=== PATIENT | male | born 1975 | race African-American/Black ===

== ENCOUNTER 2017-07-02 11:51 | Emergency (ER) | payer SELFPAY ==
[~2017-07-02] VITALS: Ht 182.9 cm; Wt 95.0 kg
[2017-07-02 13:35] LABS: INR 1.1; PROTHROMBIN TIME 11.8 sec (9.4-11.6)
[2017-07-02 13:42] LABS: CHLORIDE 99 mEq/L (98-107)
[2017-07-02 13:48] LABS: BASOPHILS % 0.4 % (0.0-2.0); EOSINOPHILS % 6.8 % (0.0-5.0); HEMATOCRIT. 23.2 % (42.0-52.0); HEMOGLOBIN. 8.2 g/dL (14.0-18.0); LYMPHOCYTES % 8.8 % (20.0-50.0); MEAN CORPUSCULAR HEMOGLOBIN 31.2 pg (28.0-32.0); MEAN CORPUSCULAR VOLUME 87.9 fL (80.0-94.0); MEAN PLATELET VOLUME 7.8 fl (7.4-10.4); MONOCYTES % 13.8 % (2.0-8.0); NEUTROPHILS % 70.2 % (40.0-76.0); PLATELET 176 x1000/uL (130-400); RED BLOOD CELL COUNT 2.64 mill/uL (4.7-6.1); RED CELL DISTRIBUTION WIDTH 14.5 % (11.6-14.6)
[2017-07-02 17:37] VITALS: BP 167/113
== END 2017-07-02 17:39 | disposition home or self-care (01) ==
LOC: ER 14:02
DX: T82.838A Hemorrhage due to vascular prosthetic devices, implants and grafts, initial encounter (principal); I12.0 Hypertensive chronic kidney disease with stage 5 chronic kidney disease or end stage renal disease; N18.6 End stage renal disease; Z99.2 Dependence on renal dialysis
CPT/HCPCS: 36415; 80053; 85025; 85610; 99284; X7700; Z7610

== ENCOUNTER 2017-07-03 09:42 | Emergency (ER) | payer BC ==
[~2017-07-03] VITALS: Ht 182.9 cm; Wt 100.0 kg
[2017-07-03] MEDS ORDERED: LIDOCAINE HCL/PF 1% 10 MG/ML 5ML VIAL ONE (10:24)
[2017-07-03 10:29] LABS: BASOPHILS % 0.3 % (0.0-2.0); EOSINOPHILS % 5.7 % (0.0-5.0); HEMATOCRIT. 23.1 % (42.0-52.0); HEMOGLOBIN. 7.7 g/dL (14.0-18.0); LYMPHOCYTES % 7.3 % (20.0-50.0); MEAN CORPUSCULAR HEMOGLOBIN 29.2 pg (28.0-32.0); MEAN PLATELET VOLUME 8.3 fl (7.4-10.4); MONOCYTES % 10.2 % (2.0-8.0); NEUTROPHILS % 76.5 % (40.0-76.0); PLATELET 242 x1000/uL (130-400); RED BLOOD CELL COUNT 2.62 mill/uL (4.7-6.1); RED CELL DISTRIBUTION WIDTH 14.9 % (11.6-14.6)
[2017-07-03 10:36] LABS: INR 1.1; PROTHROMBIN TIME 11.4 sec (9.4-11.6)
[2017-07-03 10:43] LABS: CHLORIDE 98 mEq/L (98-107)
[2017-07-03] MEDS ORDERED: HEPARIN 1000 UNITS/ML 10ML ONE (11:05)
[2017-07-03 12:00] VITALS: BP 159/97
== END 2017-07-03 12:13 | disposition home or self-care (01) ==
LOC: ER 10:00
DX: Z49.01 Encounter for fitting and adjustment of extracorporeal dialysis catheter (principal); D63.1 Anemia in chronic kidney disease; E87.1 Hypo-osmolality and hyponatremia; I12.0 Hypertensive chronic kidney disease with stage 5 chronic kidney disease or end stage renal disease; N18.6 End stage renal disease; Z99.2 Dependence on renal dialysis
CPT/HCPCS: 36415; 36556; 76937; 77001; 80053; 85025; 85610; 99285; C1752; J1644; J3490; Z7610

== ENCOUNTER 2019-06-01 06:01 | Inpatient (IN) | payer BC ==
[~2019-06-01] VITALS: Ht 170.2 cm; Wt 85.3 kg
[2019-06-01 08:10] LABS: CHLORIDE 98 mEq/L (98-107)
[2019-06-01 08:11] LABS: HEMATOCRIT. 25.5 % (42.0-52.0); HEMOGLOBIN. 8.2 g/dL (14.0-18.0); MEAN CORPUSCULAR HEMOGLOBIN 28.3 pg (28.0-32.0); MEAN CORPUSCULAR VOLUME 88.5 fL (80.0-94.0); MEAN PLATELET VOLUME 7.4 fl (7.4-10.4); PLATELET 400 x1000/uL (130-400); RED BLOOD CELL COUNT 2.88 mill/uL (4.7-6.1); RED CELL DISTRIBUTION WIDTH 15.8 % (11.6-14.6)
[2019-06-01] MEDS ORDERED: ONDANSETRON HCL 4MG/2ML INJ IV ONE (08:15)
[2019-06-01 08:21] LABS: INR 1.3; PROTHROMBIN TIME 12.9 sec (9.6-11.0)
[2019-06-01] MEDS ORDERED: MECLIZINE 25MG TABLET PO ONE (09:45)
[2019-06-01] MEDS ORDERED: ASPIRIN 325MG TABLET PO ONE (09:45)
[2019-06-01 10:37] LABS: PLATELET ESTIMATE NORMAL
[2019-06-01 14:22] VITALS: BP 139/91
[2019-06-01] MEDS ORDERED: ONDANSETRON HCL 4MG/2ML INJ IV PRN (14:30)
[2019-06-01] MEDS ORDERED: DOCUSATE SODIUM 100MG CAPSULE PO PRN (14:30)
[2019-06-01] MEDS ORDERED: IPRATROPIUM/ALBUTEROL 0.5-3(2.5)MG/3ML NEB HHN PRN (14:30)
[2019-06-01] MEDS ORDERED: CLONIDINE 0.1MG TABLET PO PRN (14:30)
[2019-06-01] MEDS ORDERED: ACETAMINOPHEN 325MG TABLET PO PRN (14:30)
[2019-06-01] MEDS ORDERED: ENOXAPARIN 40MG/0.4ML SYR SUBCUT SCH (14:30)
[2019-06-01] MEDS: ENOXAPARIN 30MG/0.3ML SYR SUBCUT SCH (16:27)
[2019-06-01] MEDS: SEVELAMER CARBONATE 800 MG TABLET PO SCH (16:27)
[2019-06-01] MEDS: CALCIUM ACETATE 667 MG TABLET PO SCH (18:38)
[2019-06-01 20:00] VITALS: BP 119/92
[2019-06-01] MEDS ORDERED: LACTULOSE 20G/30ML UDC PO PRN (21:00)
[2019-06-01] MEDS ORDERED: EPOETIN ALFA 10000UNITS/ML VIAL SUBCUT SCH (21:00)
[2019-06-01] MEDS ORDERED: TEMAZEPAM 15MG CAPSULE PO PRN (21:00)
[2019-06-01] MEDS: ATORVASTATIN CALCIUM 20MG TABLET PO SCH (22:21)
[2019-06-01] MEDS: HYDRALAZINE HCL 25MG TABLET PO SCH (22:21)
[2019-06-01] MEDS: LABETALOL HCL 300MG TABLET PO SCH (22:22)
[2019-06-01] MEDS: SODIUM CHLORIDE 0.9% INJ 3ML FLUSH IVF SCH (22:22)
[2019-06-02] VITALS: BP 121/82
[2019-06-02 04:00] VITALS: BP 120/78
[2019-06-02] MEDS: PANTOPRAZOLE 40MG DR TABLET PO SCH (06:25)
[2019-06-02] MEDS: LABETALOL HCL 300MG TABLET PO SCH ×3 (06:25→22:47)
[2019-06-02] MEDS: HYDRALAZINE HCL 25MG TABLET PO SCH ×3 (06:25→22:47)
[2019-06-02] MEDS: SODIUM CHLORIDE 0.9% INJ 3ML FLUSH IVF SCH ×3 (06:26→22:47)
[2019-06-02 08:00] VITALS: BP 134/86
[2019-06-02 08:25] LABS: HEMATOCRIT. 24.2 % (42.0-52.0); HEMOGLOBIN. 7.6 g/dL (14.0-18.0); MEAN CORPUSCULAR HEMOGLOBIN 28.2 pg (28.0-32.0); MEAN CORPUSCULAR VOLUME 89.3 fL (80.0-94.0); MEAN PLATELET VOLUME 7.5 fl (7.4-10.4); PLATELET 421 x1000/uL (130-400); RED BLOOD CELL COUNT 2.71 mill/uL (4.7-6.1); RED CELL DISTRIBUTION WIDTH 16.1 % (11.6-14.6)
[2019-06-02 08:45] LABS: CHLORIDE 97 mEq/L (98-107)
[2019-06-02 08:50] LABS: TOTAL IRON BINDING CAPACITY 118 ug/dL (250-450)
[2019-06-02] MEDS: SEVELAMER CARBONATE 800 MG TABLET PO SCH ×3 (09:08→17:07)
[2019-06-02] MEDS: LOSARTAN POTASSIUM 100 MG TABLET PO SCH (09:08)
[2019-06-02] MEDS: AMLODIPINE 10MG TABLET PO SCH (09:08)
[2019-06-02] MEDS: FOLIC ACID/VITAMIN B COMP W-C TABLET PO SCH (09:08)
[2019-06-02] MEDS: CALCIUM ACETATE 667 MG TABLET PO SCH ×3 (09:11→17:07)
[2019-06-02 12:00] VITALS: BP 127/77
[2019-06-02] MEDS: HYDROCODONE/APAP 7.5/325MG 1 TAB TABLET PO PRN ×2 (14:32→23:53)
[2019-06-02 15:55] LABS: PLATELET ESTIMATE SLIGHTLY INCREASED
[2019-06-02 16:00] VITALS: BP 118/75
[2019-06-02] MEDS: ENOXAPARIN 30MG/0.3ML SYR SUBCUT SCH (17:09)
[2019-06-02 20:00] VITALS: BP 155/78
[2019-06-02] MEDS: ATORVASTATIN CALCIUM 20MG TABLET PO SCH (22:47)
[2019-06-03] VITALS: BP 150/85
[2019-06-03 04:00] VITALS: BP 125/88
[2019-06-03] MEDS: PANTOPRAZOLE 40MG DR TABLET PO SCH (06:18)
[2019-06-03] MEDS: LABETALOL HCL 300MG TABLET PO SCH ×3 (06:18→20:40)
[2019-06-03] MEDS: HYDRALAZINE HCL 25MG TABLET PO SCH ×3 (06:19→20:39)
[2019-06-03] MEDS: SODIUM CHLORIDE 0.9% INJ 3ML FLUSH IVF SCH ×3 (06:19→20:40)
[2019-06-03 07:37] VITALS: BP 128/80
[2019-06-03] MEDS: HYDROCODONE/APAP 7.5/325MG 1 TAB TABLET PO PRN ×2 (07:42→19:17)
[2019-06-03] MEDS: SEVELAMER CARBONATE 800 MG TABLET PO SCH ×4 (08:33→19:15)
[2019-06-03] MEDS: AMLODIPINE 10MG TABLET PO SCH (08:34)
[2019-06-03] MEDS: FOLIC ACID/VITAMIN B COMP W-C TABLET PO SCH (08:34)
[2019-06-03] MEDS: LOSARTAN POTASSIUM 100 MG TABLET PO SCH (08:34)
[2019-06-03] MEDS: CALCIUM ACETATE 667 MG TABLET PO SCH ×4 (08:35→19:16)
[2019-06-03 12:11] VITALS: BP 130/81
[2019-06-03 15:33] VITALS: BP 121/79
[2019-06-03] MEDS: ENOXAPARIN 30MG/0.3ML SYR SUBCUT SCH (16:00)
[2019-06-03 20:00] VITALS: BP 135/78
[2019-06-03] MEDS: ATORVASTATIN CALCIUM 20MG TABLET PO SCH (20:40)
[2019-06-04] VITALS: BP 132/66
[2019-06-04 04:00] VITALS: BP 141/69
[2019-06-04 05:08] LABS: HEMOGLOBIN. 7.5 g/dL (14.0-18.0); MEAN CORPUSCULAR VOLUME 89.2 fL (80.0-94.0); MEAN PLATELET VOLUME 7.3 fl (7.4-10.4); PLATELET 446 x1000/uL (130-400); RED BLOOD CELL COUNT 2.58 mill/uL (4.7-6.1); RED CELL DISTRIBUTION WIDTH 16.4 % (11.6-14.6)
[2019-06-04] MEDS: SODIUM CHLORIDE 0.9% INJ 3ML FLUSH IVF SCH ×2 (06:05→13:29)
[2019-06-04] MEDS: HYDRALAZINE HCL 25MG TABLET PO SCH ×2 (06:06→13:29)
[2019-06-04] MEDS: LABETALOL HCL 300MG TABLET PO SCH ×2 (06:06→13:29)
[2019-06-04] MEDS: PANTOPRAZOLE 40MG DR TABLET PO SCH (06:06)
[2019-06-04] MEDS: HYDROCODONE/APAP 7.5/325MG 1 TAB TABLET PO PRN (06:32)
[2019-06-04 08:00] VITALS: BP 118/73
[2019-06-04] MEDS: AMLODIPINE 10MG TABLET PO SCH (08:00)
[2019-06-04] MEDS: LOSARTAN POTASSIUM 100 MG TABLET PO SCH (08:00)
[2019-06-04] MEDS: FOLIC ACID/VITAMIN B COMP W-C TABLET PO SCH (08:15)
[2019-06-04] MEDS: SEVELAMER CARBONATE 800 MG TABLET PO SCH ×4 (08:15→18:10)
[2019-06-04] MEDS: CALCIUM ACETATE 667 MG TABLET PO SCH ×4 (08:20→18:10)
[2019-06-04 12:00] VITALS: BP 118/77
[2019-06-04] MEDS: ENOXAPARIN 30MG/0.3ML SYR SUBCUT SCH (15:42)
[2019-06-04 16:52] LABS: PLATELET ESTIMATE INCREASED
[2019-06-04 18:01] VITALS: BP 127/82
[2019-06-04 20:00] VITALS: BP 140/86
== END 2019-06-04 21:15 | disposition left against medical advice (07) | DRG 686 ==
LOC: ER 06:14 → 6WST 09:37 → EDBEDREQ 09:39 → ENRESERV 11:50
PROVIDERS: ADMIT Internal Medicine Nephrology; ATTEND Internal Medicine Nephrology
PROC: 5A1D70Z Performance of Urinary Filtration, Intermittent, Less than 6 Hours Per Day (ICD-10-PCS; 2019-06-02)
PROC: 30233N1 Transfusion of Nonautologous Red Blood Cells into Peripheral Vein, Percutaneous Approach (ICD-10-PCS; principal; 2019-06-04)
PROC: 5A1D70Z Performance of Urinary Filtration, Intermittent, Less than 6 Hours Per Day (ICD-10-PCS; 2019-06-04)
DX: C64.2 Malignant neoplasm of left kidney, except renal pelvis (principal); N18.6 End stage renal disease; G92 Toxic encephalopathy; I13.11 Hypertensive heart and chronic kidney disease without heart failure, with stage 5 chronic kidney disease, or end stage renal disease; I50.32 Chronic diastolic (congestive) heart failure; D63.1 Anemia in chronic kidney disease; R47.81 Slurred speech; K59.00 Constipation, unspecified; T40.2X5A Adverse effect of other opioids, initial encounter; Z53.29 Procedure and treatment not carried out because of patient's decision for other reasons; Z99.2 Dependence on renal dialysis; Z86.79 Personal history of other diseases of the circulatory system; Z90.5 Acquired absence of kidney; Z86.14 Personal history of Methicillin resistant Staphylococcus aureus infection; Z95.2 Presence of prosthetic heart valve; Z87.891 Personal history of nicotine dependence; Y92.89 Other specified places as the place of occurrence of the external cause
CPT/HCPCS: 36415; 71045; 80048; 80053; 80320; 82962; 83540; 83550; 83970; 84484; 85025; 86850; 86900; 86920; 93005; 99291; J0885; J1650; J2405; J8597; P9016; G0480

== ENCOUNTER 2020-12-16 18:19 | Inpatient (IN) | payer BC ==
[~2020-12-16] VITALS: Ht 182.9 cm; Wt 85.0 kg
[2020-12-16 19:20] LABS: CHLORIDE 102 mEq/L (98-107)
[2020-12-16 19:22] LABS: INR 1.1; PROTHROMBIN TIME 11.3 sec (9.6-11.0)
[2020-12-16 19:28] LABS: HEMATOCRIT. 22.1 % (42.0-52.0); HEMOGLOBIN. 7.4 g/dL (14.0-18.0); MEAN CORPUSCULAR HEMOGLOBIN 31.6 pg (28.0-32.0); MEAN CORPUSCULAR VOLUME 94.5 fL (80.0-94.0); MEAN PLATELET VOLUME 7.4 fl (7.4-10.4); PLATELET 184 x1000/uL (130-400); RED BLOOD CELL COUNT 2.34 mill/uL (4.7-6.1); RED CELL DISTRIBUTION WIDTH 16.4 % (11.6-14.6)
[2020-12-16 20:07] LABS: PLATELET ESTIMATE NORMAL
[2020-12-16] MEDS ORDERED: ACETAMINOPHEN 650MG/20.3ML UDC PO ONE (21:45)
[2020-12-17] MEDS ORDERED: GUAIFENESIN 200MG/10ML SUGAR FREE UDC PO PRN (01:00)
[2020-12-17] MEDS ORDERED: IPRATROPIUM/ALBUTEROL 0.5-3(2.5)MG/3ML NEB HHN PRN (01:00)
[2020-12-17] MEDS ORDERED: CLONIDINE 0.1MG TABLET PO PRN (01:00)
[2020-12-17] MEDS ORDERED: DIPHENHYDRAMINE 50MG/ML VIAL IV PRN (01:00)
[2020-12-17] MEDS ORDERED: ACETAMINOPHEN 325MG TABLET PO PRN (01:00)
[2020-12-17] MEDS ORDERED: ONDANSETRON HCL 4MG/2ML INJ IV PRN (01:00)
[2020-12-17] MEDS: ACETAMINOPHEN 325MG TABLET PO PRN ×2 (03:49→15:08)
[2020-12-17] MEDS: ZOLPIDEM TARTRATE 5MG TABLET PO PRN (04:12)
[2020-12-17] MEDS: SODIUM CHLORIDE 0.9% INJ 3ML FLUSH IVF SCH ×2 (06:00→14:57)
[2020-12-17 12:00] LABS: HEPATITIS B SURFACE ANTIGEN NEGATIVE
[2020-12-17 12:08] LABS: BG BASE EXCESS 8.5 mmol/L (-2.0-2.0); BG CARBOXYHEMOGLOBIN 0.5 % (0.5-1.5); BG DEOXYHEMOGLOBIN 3.5 % (0.0-5.0); BG FRACTION INSPIRED OXYGEN 100; BG METHEMOGLOBIN 0.2 % (0.0-1.5); BG OXYGEN SATURATION 96.5 % (92.0-98.5); BG OXYHEMOGLOBIN 95.8 % (94.0-97.0); BG PH 7.521 (7.350-7.450); BG PO2 86.9 mmHg (75.0-100.0); BG SAMPLE SITE RIGHT RADIAL; BG TOTAL HEMOGLOBIN 8.2 g/dL (12.0-18.0); BG VENT MODE MASK - NRB
[2020-12-17 12:30] LABS: HEPATITIS A AB IGM NEGATIVE (NEGATIVE)
[2020-12-17] MEDS: AMLODIPINE 10MG TABLET PO SCH (13:02)
[2020-12-17] MEDS: LABETALOL HCL 300MG TABLET PO SCH (13:47)
[2020-12-17] MEDS: HYDRALAZINE HCL 100MG TABLET PO SCH (14:00)
[2020-12-17] MEDS: CALCIUM ACETATE 667MG CAPSULE PO SCH (17:00)
[2020-12-17] MEDS: IPRATROPIUM/ALBUTEROL 0.5-3(2.5)MG/3ML NEB HHN SCH (20:11)
[2020-12-17] MEDS ORDERED: IOHEXOL-350 100 ML BOTTLE ONE (20:55)
[2020-12-18] VITALS (13 sets, daily range): BP systolic 126–156; BP diastolic 76–101
[2020-12-18] MEDS: EPOETIN ALFA-EPBX 10,000 UNIT/ML VIAL SUBCUT SCH (01:51)
[2020-12-18] MEDS: SODIUM CHLORIDE 0.9% INJ 3ML FLUSH IVF SCH ×4 (01:51→21:18)
[2020-12-18] MEDS: ZOLPIDEM TARTRATE 5MG TABLET PO PRN (01:52)
[2020-12-18] MEDS: IPRATROPIUM/ALBUTEROL 0.5-3(2.5)MG/3ML NEB HHN SCH ×3 (02:33→13:38)
[2020-12-18] MEDS: ACETAMINOPHEN 325MG TABLET PO PRN ×2 (05:01→12:16)
[2020-12-18] MEDS: HYDRALAZINE HCL 100MG TABLET PO SCH ×3 (05:02→21:18)
[2020-12-18 06:19] LABS: MEAN CORPUSCULAR HEMOGLOBIN 32.1 pg (28.0-32.0); MEAN CORPUSCULAR VOLUME 95.2 fL (80.0-94.0); MEAN PLATELET VOLUME 7.7 fl (7.4-10.4); PLATELET 156 x1000/uL (130-400); RED BLOOD CELL COUNT 2.11 mill/uL (4.7-6.1); RED CELL DISTRIBUTION WIDTH 16.7 % (11.6-14.6)
[2020-12-18 06:38] LABS: PHOSPHORUS 3.9 mg/dL (2.5-4.9)
[2020-12-18 06:42] LABS: HEMATOCRIT. 20.1 % (42.0-52.0)
[2020-12-18 06:43] LABS: HEMOGLOBIN. 6.8 g/dL (14.0-18.0)
[2020-12-18] MEDS: LOSARTAN POTASSIUM 100 MG TABLET PO SCH (08:58)
[2020-12-18] MEDS: CALCIUM ACETATE 667MG CAPSULE PO SCH ×3 (08:58→18:04)
[2020-12-18] MEDS: LABETALOL HCL 300MG TABLET PO SCH ×2 (08:59→21:18)
[2020-12-18] MEDS: AMLODIPINE 10MG TABLET PO SCH (09:00)
[2020-12-18] MEDS: BUDESONIDE 0.5MG/2ML NEB HHN SCH (09:27)
[2020-12-18 10:11] LABS: PLATELET ESTIMATE NORMAL
[2020-12-18] MEDS ORDERED: NALOXONE HCL 0.4MG/ML VIAL IV PRN (14:00)
[2020-12-18] MEDS: TRAMADOL 50MG TABLET PO PRN (14:07)
[2020-12-19] VITALS: BP 149/96
[2020-12-19] MEDS: TRAMADOL 50MG TABLET PO PRN ×3 (00:10→21:40)
[2020-12-19] MEDS: ZOLPIDEM TARTRATE 5MG TABLET PO PRN (01:20)
[2020-12-19] MEDS: IPRATROPIUM/ALBUTEROL 0.5-3(2.5)MG/3ML NEB HHN SCH ×4 (02:31→20:20)
[2020-12-19 04:00] VITALS: BP 129/79
[2020-12-19] MEDS: HYDRALAZINE HCL 100MG TABLET PO SCH ×3 (06:31→21:40)
[2020-12-19] MEDS: SODIUM CHLORIDE 0.9% INJ 3ML FLUSH IVF SCH ×3 (06:32→21:41)
[2020-12-19 08:27] VITALS: BP 120/76
[2020-12-19] MEDS: BUDESONIDE 0.5MG/2ML NEB HHN SCH ×2 (08:36→21:09)
[2020-12-19] MEDS: LABETALOL HCL 300MG TABLET PO SCH ×2 (09:22→21:40)
[2020-12-19] MEDS: AMLODIPINE 10MG TABLET PO SCH (09:22)
[2020-12-19] MEDS: CALCIUM ACETATE 667MG CAPSULE PO SCH ×3 (09:23→17:43)
[2020-12-19] MEDS: LOSARTAN POTASSIUM 100 MG TABLET PO SCH (09:23)
[2020-12-19 11:59] VITALS: BP 122/79
[2020-12-19 16:00] VITALS: BP 117/68
[2020-12-19 20:00] VITALS: BP 136/80
[2020-12-19] MEDS: EPOETIN ALFA-EPBX 10,000 UNIT/ML VIAL SUBCUT SCH (21:41)
[2020-12-20] VITALS (12 sets, daily range): BP systolic 121–138; BP diastolic 71–89
[2020-12-20] MEDS: ZOLPIDEM TARTRATE 5MG TABLET PO PRN (00:13)
[2020-12-20] MEDS: IPRATROPIUM/ALBUTEROL 0.5-3(2.5)MG/3ML NEB HHN SCH ×4 (02:03→21:08)
[2020-12-20] MEDS: HYDRALAZINE HCL 100MG TABLET PO SCH ×2 (06:15→13:18)
[2020-12-20] MEDS: SODIUM CHLORIDE 0.9% INJ 3ML FLUSH IVF SCH ×2 (06:15→13:19)
[2020-12-20] MEDS: BUDESONIDE 0.5MG/2ML NEB HHN SCH (07:29)
[2020-12-20 07:55] LABS: HEMOGLOBIN. 7.1 g/dL (14.0-18.0); MEAN CORPUSCULAR HEMOGLOBIN 31.7 pg (28.0-32.0); MEAN CORPUSCULAR VOLUME 92.8 fL (80.0-94.0); MEAN PLATELET VOLUME 7.5 fl (7.4-10.4); PLATELET 204 x1000/uL (130-400); RED BLOOD CELL COUNT 2.24 mill/uL (4.7-6.1); RED CELL DISTRIBUTION WIDTH 16.1 % (11.6-14.6)
[2020-12-20 08:35] LABS: HEMATOCRIT. 20.8 % (42.0-52.0)
[2020-12-20 08:55] LABS: BG BASE EXCESS 5.4 mmol/L (-2.0-2.0); BG CARBOXYHEMOGLOBIN 1.5 % (0.5-1.5); BG DEOXYHEMOGLOBIN 10.3 % (0.0-5.0); BG HCO3 ACT 28.5 mmol/L (22.0-26.0); BG METHEMOGLOBIN 0.4 % (0.0-1.5); BG OXYGEN SATURATION 89.5 % (92.0-98.5); BG OXYHEMOGLOBIN 87.8 % (94.0-97.0); BG PCO2 35.3 mmHg (35.0-45.0); BG PH 7.525 (7.350-7.450); BG PO2 55.1 mmHg (75.0-100.0); BG SAMPLE SITE RIGHT RADIAL; BG TOTAL HEMOGLOBIN 7.9 g/dL (12.0-18.0); BG VENT MODE ROOM AIR
[2020-12-20] MEDS: CALCIUM ACETATE 667MG CAPSULE PO SCH ×2 (09:04→13:20)
[2020-12-20] MEDS: TRAMADOL 50MG TABLET PO PRN ×2 (09:05→20:15)
[2020-12-20] MEDS: LABETALOL HCL 300MG TABLET PO SCH ×2 (09:05→21:12)
[2020-12-20] MEDS: LOSARTAN POTASSIUM 100 MG TABLET PO SCH (09:05)
[2020-12-20] MEDS: AMLODIPINE 10MG TABLET PO SCH (09:06)
[2020-12-20 18:56] LABS: PLATELET ESTIMATE NORMAL
[2020-12-20 19:41] LABS: HEMATOCRIT. 26.5 % (42.0-52.0); MEAN CORPUSCULAR HEMOGLOBIN 31.1 pg (28.0-32.0); MEAN CORPUSCULAR VOLUME 91.5 fL (80.0-94.0); MEAN PLATELET VOLUME 7.3 fl (7.4-10.4); PLATELET 270 x1000/uL (130-400); RED CELL DISTRIBUTION WIDTH 17.5 % (11.6-14.6)
[2020-12-20 21:20] LABS: PLATELET ESTIMATE NORMAL
== END 2020-12-20 21:44 | disposition home or self-care (01) | DRG 291 ==
LOC: ER 18:19 → MICUSO 12-17 00:31 → EDBEDREQDT 12-17 00:44 → EDBEDREQ 12-17 00:44 → EDBEDREQTM 12-17 00:44 → 6WST 12-17 22:34
PROVIDERS: ADMIT Internal Medicine; ATTEND Internal Medicine
PROC: 5A1D70Z Performance of Urinary Filtration, Intermittent, Less than 6 Hours Per Day (ICD-10-PCS; 2020-12-17)
PROC: 30233N1 Transfusion of Nonautologous Red Blood Cells into Peripheral Vein, Percutaneous Approach (ICD-10-PCS; principal; 2020-12-18)
PROC: 5A1D70Z Performance of Urinary Filtration, Intermittent, Less than 6 Hours Per Day (ICD-10-PCS; 2020-12-18)
PROC: 5A1D70Z Performance of Urinary Filtration, Intermittent, Less than 6 Hours Per Day (ICD-10-PCS; 2020-12-19)
DX: I13.2 Hypertensive heart and chronic kidney disease with heart failure and with stage 5 chronic kidney disease, or end stage renal disease (principal); J96.01 Acute respiratory failure with hypoxia; I50.33 Acute on chronic diastolic (congestive) heart failure; N18.6 End stage renal disease; J84.9 Interstitial pulmonary disease, unspecified; M54.5 Low back pain; Z20.822 Contact with and (suspected) exposure to COVID-19; D63.8 Anemia in other chronic diseases classified elsewhere; E78.00 Pure hypercholesterolemia, unspecified; I25.10 Atherosclerotic heart disease of native coronary artery without angina pectoris; Z99.81 Dependence on supplemental oxygen; Z85.528 Personal history of other malignant neoplasm of kidney; Z90.5 Acquired absence of kidney; Z99.2 Dependence on renal dialysis
CPT/HCPCS: 36415; 36600; 71045; 71275; 80048; 80053; 82375; 82805; 82962; 83735; 84100; 85025; 85379; 86705; 86709; 86803; 86850; 86900; 86920; 87340; 87426; 99285; J0885; J1200; J7040; J7626; P9016; Q9967

== ENCOUNTER 2021-01-27 17:40 | Emergency (ER) | payer BC ==
[~2021-01-27] VITALS: Ht 182.9 cm; Wt 104.0 kg
[2021-01-27 19:06] LABS: HEMOGLOBIN. 7.9 g/dL (14.0-18.0); MEAN CORPUSCULAR HEMOGLOBIN 31.7 pg (28.0-32.0); MEAN CORPUSCULAR VOLUME 92.1 fL (80.0-94.0); MEAN PLATELET VOLUME 6.5 fl (7.4-10.4); PLATELET 250 x1000/uL (130-400); RED CELL DISTRIBUTION WIDTH 17.9 % (11.6-14.6)
[2021-01-27 19:13] LABS: CHLORIDE 99 mEq/L (98-107)
[2021-01-27 19:18] LABS: PHOSPHORUS 4.1 mg/dL (2.5-4.9)
[2021-01-27 20:31] LABS: PLATELET ESTIMATE NORMAL
[2021-01-27 22:26] VITALS: BP 159/94
== END 2021-01-27 23:21 | disposition home or self-care (01) ==
LOC: ER 17:40 → EDBEDREQ 18:53 → ER 23:21 → CANBEDREQ 01-28 03:35
DX: T82.838A Hemorrhage due to vascular prosthetic devices, implants and grafts, initial encounter (principal); I12.0 Hypertensive chronic kidney disease with stage 5 chronic kidney disease or end stage renal disease; N18.6 End stage renal disease; I10 Essential (primary) hypertension; E78.00 Pure hypercholesterolemia, unspecified
CPT/HCPCS: 36415; 71045; 80053; 83735; 83880; 84100; 84484; 85025; 93005; 99285; Z7610

== ENCOUNTER 2022-05-11 08:47 | Emergency (ER) | payer BC ==
[~2022-05-11] VITALS: Ht 172.7 cm; Wt 70.0 kg
[2022-05-11 08:50] VITALS: BP 143/94
== END 2022-05-11 11:14 | disposition left against medical advice (07) ==
LOC: ER 08:47
DX: Z53.21 Procedure and treatment not carried out due to patient leaving prior to being seen by health care provider (principal)

== ENCOUNTER 2023-06-01 02:29 | Inpatient (IN) | payer MEDICARE, MEDICAID ==
[~2023-06-01] VITALS: Ht 182.9 cm; Wt 79.4 kg
[~2023-06-01 02:29] MED LIST: AMLO10TA80 PO; ATOR20TA65 PO; DOCU-150 PO; FOLI0.8T23 PO; FURO80TA3 PO; LOSA100T33 PO
[2023-06-01 02:32] VITALS: O2SAT 99
[2023-06-01] MEDS ORDERED: MORPHINE SULFATE 4 MG/ML CPJ (NOT FOR IM USE) IV ONE ×2 (05:30→06:30)
[2023-06-01] MEDS ORDERED: LIDOCAINE HCL 2%/EPINEPHRINE/PF 10 ML VIAL INFIL ONE (05:30)
[2023-06-01] MEDS ORDERED: ONDANSETRON HCL 4MG/2ML INJ IV ONE (06:30)
[2023-06-01 07:32] LABS: HEMATOCRIT. 29.3 % (42.0-52.0); HEMOGLOBIN. 9.3 g/dL (14.0-18.0); MEAN CORPUSCULAR HEMOGLOBIN 31.2 pg (28.0-32.0); MEAN CORPUSCULAR HGB CONC 31.8 g/dL (31.0-37.0); MEAN CORPUSCULAR VOLUME 98.1 fL (80.0-94.0); MEAN PLATELET VOLUME 7.7 fl (7.4-10.4); PLATELET 133 x1000/uL (130-400); RED BLOOD CELL COUNT 2.99 mill/uL (4.7-6.1); RED CELL DISTRIBUTION WIDTH 22.4 % (11.6-14.6); WHITE BLOOD COUNT 9.2 x1000/uL (4.5-11.0)
[2023-06-01 07:45] LABS: CALCIUM 9.3 mg/dL (8.7-10.4); POTASSIUM 5.3 mEq/L (3.5-5.1)
[2023-06-01 08:08] LABS: DIFFERENTIAL COMMENT 1
[2023-06-01] MEDS ORDERED: THROMBIN (BOVINE) 5000 UNITS/VIAL TOP ONE ×3 (09:34→13:28)
[2023-06-01] MEDS ORDERED: LIDOCAINE HCL 1% 10 MG/ML 10ML VIAL ONE ×2 (09:35→11:22)
[2023-06-01] MEDS ORDERED: BACITRACIN 14GM TUBE TOP ONE (09:35)
[2023-06-01] MEDS ORDERED: BUPIVACAINE HCL/PF 0.5% (5MG/ML) 10ML ONE ×2 (09:36→09:52)
[2023-06-01] MEDS ORDERED: HEPARIN SODIUM 1,000 UNIT/1ML VIAL IV ONE ×3 (09:37→13:16)
[2023-06-01] MEDS ORDERED: LIDOCAINE HCL 1% 20ML VIAL (Pyxis) INJ ONE (09:52)
[2023-06-01] MEDS ORDERED: SKIN ADHESIVE 0.7 GM EA TOP ONE (09:52)
[2023-06-01] MEDS ORDERED: POLYMYXIN B SULFATE 500000 UNITS/VIAL ONE (09:59)
[2023-06-01] MEDS ORDERED: PROPOFOL 200MG/20ML VIAL IV ONE (11:08)
[2023-06-01] MEDS ORDERED: MIDAZOLAM HCL 2 MG/2 ML VIAL ONE (11:11)
[2023-06-01] MEDS ORDERED: CEFAZOLIN SODIUM 1000MG/VIAL ONE (11:22)
[2023-06-01] MEDS ORDERED: ONDANSETRON HCL 4MG/2ML INJ ONE (11:22)
[2023-06-01] MEDS ORDERED: DEXAMETHASONE 4MG/ML 1ML VIAL ONE (11:22)
[2023-06-01] MEDS ORDERED: FENTANYL CITRATE/PF 50MCG/ML 2ML VIAL ONE ×3 (11:24→14:26)
[2023-06-01] MEDS ORDERED: ONDANSETRON HCL 4MG/2ML INJ IV PRN (11:30)
[2023-06-01] MEDS ORDERED: MEPERIDINE HCL/PF 25MG/ML CPJ IV PRN (11:30)
[2023-06-01] MEDS ORDERED: FENTANYL CITRATE/PF 50MCG/ML 2ML VIAL IV PRN (11:30)
[2023-06-01] MEDS ORDERED: ACETAMINOPHEN 325MG TABLET PO PRN (12:45)
[2023-06-01] MEDS ORDERED: HEPARIN 1000 UNITS/ML 10ML ONE (13:01)
[2023-06-01] MEDS ORDERED: PROTAMINE SULFATE 10MG/ML VIAL 5ML IV ONE (13:07)
[2023-06-01] MEDS ORDERED: EPHEDRINE SULFATE 50MG/ML VIAL ONE (13:15)
[2023-06-01] MEDS ORDERED: IOHEXOL-300 100 ML BOTTLE ONE (14:55)
[2023-06-01 15:09] LABS: PLATELET ESTIMATE NORMAL
[2023-06-01 15:38] LABS: HEMATOCRIT 26.4 % (42.0-52.0); HEMOGLOBIN 8.2 g/dL (14.0-18.0); MEAN CORPUSCULAR HGB CONC 31.3 g/dL (31.0-37.0); MEAN CORPUSCULAR VOLUME 99.2 fL (80.0-94.0); PLATELET 149 x1000/uL (130-400); RED BLOOD CELL COUNT 2.66 mill/uL (4.7-6.1); RED CELL DISTRIBUTION WIDTH 22.3 % (11.6-14.6); WHITE BLOOD COUNT 9.3 x1000/uL (4.5-11.0)
[2023-06-01 15:56] LABS: INR 1.1; PROTHROMBIN TIME 12.2 sec (9.6-11.0)
[2023-06-01 18:44] LABS: PHOSPHORUS 6.6 mg/dL (2.5-4.9)
[2023-06-01 19:21] LABS: HEPATITIS A AB IGM NEGATIVE (Negative); HEPATITIS B CORE AB IGM NEGATIVE (Negative); HEPATITIS B SURFACE ANTIGEN NEGATIVE (Negative); HEPATITIS C AB NON REACTIVE (Neg) (Negative)
[2023-06-01 20:00] VITALS: BP 134/83; PULSE 93; RESP 22; TEMP 98.9
[2023-06-01] MEDS: HYDROMORPHONE HCL/PF 2MG/ML CPJ IV PRN (21:06)
[2023-06-02] VITALS (23 sets, daily range): BP systolic 111–143; BP diastolic 69–91; PULSE 70–84; RESP 12–20; TEMP 97–98.7
[2023-06-02] MEDS: HYDROMORPHONE HCL/PF 2MG/ML CPJ IV PRN ×2 (05:21→09:45)
[2023-06-02 06:23] LABS: HEMATOCRIT. 25.8 % (42.0-52.0); HEMOGLOBIN. 8.3 g/dL (14.0-18.0); MEAN CORPUSCULAR HEMOGLOBIN 31.1 pg (28.0-32.0); MEAN CORPUSCULAR HGB CONC 32.3 g/dL (31.0-37.0); MEAN CORPUSCULAR VOLUME 96.2 fL (80.0-94.0); MEAN PLATELET VOLUME 8.3 fl (7.4-10.4); PLATELET 111 x1000/uL (130-400); RED BLOOD CELL COUNT 2.68 mill/uL (4.7-6.1); RED CELL DISTRIBUTION WIDTH 22.4 % (11.6-14.6); WHITE BLOOD COUNT 11.5 x1000/uL (4.5-11.0)
[2023-06-02 06:37] LABS: DIFFERENTIAL COMMENT 1
[2023-06-02] MEDS ORDERED: CEFAZOLIN 1000MG PREMIX 50 ML IV NR (07:15)
[2023-06-02] MEDS ORDERED: HEPARIN 1000 UNITS/ML 10ML ONE (07:19)
[2023-06-02] MEDS ORDERED: CEFAZOLIN 1000MG PREMIX 50 ML IV ONE (07:19)
[2023-06-02] MEDS ORDERED: LIDOCAINE HCL 1% 10 MG/ML 10ML VIAL ONE (07:19)
[2023-06-02] MEDS ORDERED: FENTANYL CITRATE/PF 50MCG/ML 2ML VIAL ONE (07:44)
[2023-06-02] MEDS ORDERED: IOHEXOL-300 50 ML BOTTLE IV ONE (07:49)
[2023-06-02 09:58] LABS: CALCIUM 8.8 mg/dL (8.7-10.4)
[2023-06-02 10:40] LABS: CREATININE 8.7 mg/dL (0.6-1.3); POTASSIUM 6.6 mEq/L (3.5-5.1)
[2023-06-02] MEDS ORDERED: TRAMADOL 50MG TABLET PO PRN (17:45)
[2023-06-02 20:13] LABS: PLATELET ESTIMATE DECREASED
[2023-06-02 20:14] LABS: ANISOCYTOSIS 2+
== END 2023-06-02 20:00 | disposition left against medical advice (07) | DRG 252 ==
LOC: ER 02:29 → 7EST 08:00 → EDBEDREQ 08:04 → EDBEDREQSVC 08:04 → ER 09:44
PROVIDERS: ADMIT Internal Medicine; ATTEND Internal Medicine
PROC: 0XQ9XZZ Repair Left Upper Arm, External Approach (ICD-10-PCS; principal; 2023-06-01)
PROC: 05BY0ZZ Excision of Upper Vein, Open Approach (ICD-10-PCS; 2023-06-01)
PROC: 0JH63XZ Insertion of Tunneled Vascular Access Device into Chest Subcutaneous Tissue and Fascia, Percutaneous Approach (ICD-10-PCS; 2023-06-02)
PROC: 02H633Z Insertion of Infusion Device into Right Atrium, Percutaneous Approach (ICD-10-PCS; 2023-06-02)
PROC: B5181ZA Fluoroscopy of Superior Vena Cava using Low Osmolar Contrast, Guidance (ICD-10-PCS; 2023-06-02)
PROC: B548ZZA Ultrasonography of Superior Vena Cava, Guidance (ICD-10-PCS; 2023-06-02)
PROC: 5A1D70Z Performance of Urinary Filtration, Intermittent, Less than 6 Hours Per Day (ICD-10-PCS; 2023-06-02)
DX: T82.838A Hemorrhage due to vascular prosthetic devices, implants and grafts, initial encounter (principal); J96.00 Acute respiratory failure, unspecified whether with hypoxia or hypercapnia; N18.6 End stage renal disease; I12.0 Hypertensive chronic kidney disease with stage 5 chronic kidney disease or end stage renal disease; E87.5 Hyperkalemia; Z53.29 Procedure and treatment not carried out because of patient's decision for other reasons; D50.0 Iron deficiency anemia secondary to blood loss (chronic); E87.70 Fluid overload, unspecified; D63.1 Anemia in chronic kidney disease; I72.8 Aneurysm of other specified arteries; D69.1 Qualitative platelet defects; J44.81 Bronchiolitis obliterans and bronchiolitis obliterans syndrome; Z99.2 Dependence on renal dialysis; Z86.16 Personal history of COVID-19; Z87.01 Personal history of pneumonia (recurrent); Z85.528 Personal history of other malignant neoplasm of kidney; Z90.5 Acquired absence of kidney; Y84.1 Kidney dialysis as the cause of abnormal reaction of the patient, or of later complication, without mention of misadventure at the time of the procedure; Y92.89 Other specified places as the place of occurrence of the external cause
CPT/HCPCS: 36415; 36558; 71045; 76000; 76937; 77001; 80048; 84100; 85025; 85027; 86705; 86709; 87340; 88304; 90935; 99285; C1750; C1769; C1887; J0690; J1100; J1170; J1644; J2250; J2270; J2405; J2704; J2720; J3010; J3490; J7030; J7040; Q9967

== ENCOUNTER 2024-02-15 22:48 | Emergency (ER) | payer MEDICAID, MEDICARE ==
[~2024-02-15] VITALS: Ht 175.3 cm; Wt 90.0 kg
[2024-02-15 22:52] VITALS: BP 117/73; PULSE 87; RESP 18; TEMP 98.1; O2SAT 99
[2024-02-15] MEDS: OXYMETAZOLINE HCL NASAL SPRAY 15ML BOTHNSTRLS ONE (23:00)
[2024-02-15] MEDS: TRANEXAMIC ACID 1,000MG/10ML IV ONE (23:00)
[2024-02-16] MEDS: ONDANSETRON HCL 4MG/2ML INJ IV ONE (00:49)
[2024-02-16] MEDS: ACETAMINOPHEN 1000MG/100ML 100 ML IV ONE (00:54)
[2024-02-16] MEDS ORDERED: ONDA4TAB50 MT (01:42)
[2024-02-16] MEDS ORDERED: CEPH500C2 MT (01:42)
[2024-02-16] MEDS ORDERED: ACET-2708 MT (01:42)
== END 2024-02-16 02:07 | disposition home or self-care (01) ==
LOC: ER 22:48
DX: R04.0 Epistaxis (principal); I12.0 Hypertensive chronic kidney disease with stage 5 chronic kidney disease or end stage renal disease; I25.2 Old myocardial infarction; N18.6 End stage renal disease; Z79.899 Other long term (current) drug therapy; Z99.2 Dependence on renal dialysis; Z98.890 Other specified postprocedural states; Z99.81 Dependence on supplemental oxygen
CPT/HCPCS: 99283; 96374; 30901; 96375; J2405; 99284; J0131

== ENCOUNTER 2024-09-18 18:14 | Inpatient (IN) | payer MEDICARE ==
[~2024-09-18] VITALS: Ht 177.8 cm; Wt 81.6 kg
[~2024-09-18 18:14] MED LIST changes: +ACET-2708 MT; +CEPH500C2 MT; -DOCU-150 PO; +DOCU-422 PO; +ONDA4TAB50 MT
[2024-09-18] MEDS: MORPHINE SULFATE 4 MG/ML INJ (FOR IV/IM USE) IV STA (19:11)
[2024-09-18] MEDS: SODIUM CHLORIDE 0.9% 500 ML IV ONE (19:12)
[2024-09-18 19:21] LABS: BASOPHILS % 0.3 % (0.0-2.0); DIFFERENTIAL COMMENT 0; EOSINOPHILS % 3.2 % (0.0-5.0); HEMATOCRIT. 23.1 % (42.0-52.0); HEMOGLOBIN. 7.6 g/dL (14.0-18.0); LYMPHOCYTES % 7.5 % (20.0-50.0); MEAN CORPUSCULAR HEMOGLOBIN 33.7 pg (28.0-32.0); MEAN CORPUSCULAR HGB CONC 32.9 g/dL (31.0-37.0); MEAN CORPUSCULAR VOLUME 102.5 fL (80.0-94.0); MEAN PLATELET VOLUME 10.6 fl (7.4-10.4); MONOCYTES % 5.3 % (2.0-8.0); NEUTROPHILS % 83.7 % (40.0-76.0); PLATELET 79 x1000/uL (130-400); RED BLOOD CELL COUNT 2.26 mill/uL (4.7-6.1); RED CELL DISTRIBUTION WIDTH 17.6 % (11.6-14.6); WHITE BLOOD COUNT 8.1 x1000/uL (4.5-11.0)
[2024-09-18 19:25] LABS: CHLORIDE 96 mEq/L (98-107); POTASSIUM 3.5 mEq/L (3.5-5.1); SODIUM 136 mEq/L (136-145)
[2024-09-18 19:26] LABS: CALCIUM 9.4 mg/dL (8.7-10.4); CARBON DIOXIDE 30 mEq/L (21-32)
[2024-09-18 19:29] LABS: PROTHROMBIN TIME 10.9 sec (9.6-11.0)
[2024-09-18 19:31] LABS: GLUCOSE 93 mg/dL (70-105); UREA NITROGEN BLOOD 24 mg/dL (9-23)
[2024-09-18 19:40] LABS: CREATININE 3.8 mg/dL (0.6-1.3)
[2024-09-18 19:41] LABS: TROPONIN I HIGH SENSITIVITY 177 ng/L (3.0-53)
[2024-09-18] MEDS: MORPHINE SULFATE 2 MG/ML INJ (NOT FOR IM USE) IV ONE (19:51)
[2024-09-18 20:28] LABS: LACTIC ACID 3.8 mmol/L (0.4-2.0)
[2024-09-18 21:08] LABS: TROPONIN I HIGH SENSITIVITY 186 ng/L (3.0-53)
[2024-09-18] MEDS: ASPIRIN 325MG TABLET PO ONE (21:50)
[2024-09-18] MEDS: CEFTRIAXONE 1GM/50ML 50 ML IV NR (21:52)
[2024-09-19] VITALS (10 sets, daily range): BP systolic 81–140; BP diastolic 36–64; PULSE 70–94; RESP 18–20; TEMP 36.55848–36.9; O2SAT 74–100
[2024-09-19] MEDS ORDERED: MAGNESIUM/ALUMINUM HYDROXIDE/SIMETHICONE 30ML UDC PO PRN (00:30)
[2024-09-19] MEDS ORDERED: DEXTROSE 50% WATER 50ML SYRINGE IV PRN (00:30)
[2024-09-19] MEDS ORDERED: ACETAMINOPHEN 325MG TABLET PO PRN ×2 (00:30)
[2024-09-19] MEDS ORDERED: HYDRALAZINE 20MG/ML VIAL IV PRN (00:30)
[2024-09-19] MEDS ORDERED: IPRATROPIUM/ALBUTEROL 0.5-3(2.5)MG/3ML NEB HHN PRN (00:30)
[2024-09-19] MEDS ORDERED: ONDANSETRON HCL 4MG/2ML INJ IV PRN (00:30)
[2024-09-19] MEDS ORDERED: APIX2.5T PO (00:35)
[2024-09-19] MEDS ORDERED: SEVE800T25 (00:35)
[2024-09-19] MEDS ORDERED: MIDO10TA3 PO (00:35)
[2024-09-19] MEDS: LACTATED RINGERS 1,000 ML IV SCH (01:18)
[2024-09-19] MEDS: MIDODRINE HCL 5MG TABLET PO SCH (01:33)
[2024-09-19] MEDS: MORPHINE SULFATE 2 MG/ML INJ (NOT FOR IM USE) IV NR (01:58)
[2024-09-19 02:27] LABS: TROPONIN I HIGH SENSITIVITY 177 ng/L (3.0-53)
[2024-09-19] MEDS: MORPHINE SULFATE 2 MG/ML INJ (NOT FOR IM USE) IV PRN (05:02)
[2024-09-19] MEDS: INSULIN LISPRO 100 UNITS/ML SUBCUT SCH (06:42)
[2024-09-19] MEDS: BLOOD SUGAR DIAGNOSTIC STRIP TEST SCH (06:42)
[2024-09-19 07:08] LABS: CREATINE KINASE MB FRACTION 1.8 ng/mL (0.5-3.6)
[2024-09-19 07:09] LABS: CREATINE KINASE 28 IU/L (46-171)
[2024-09-19 07:10] LABS: PHOSPHORUS 3.4 mg/dL (2.5-4.9)
[2024-09-19 07:11] LABS: VITAMIN B12 SERUM 1435 pg/mL (211-911)
[2024-09-19 08:13] LABS: TROPONIN I HIGH SENSITIVITY 195 ng/L (3.0-53)
[2024-09-19 08:32] LABS: MEAN CORPUSCULAR HEMOGLOBIN 33.3 pg (28.0-32.0); MEAN CORPUSCULAR HGB CONC 33.2 g/dL (31.0-37.0); MEAN CORPUSCULAR VOLUME 100.5 fL (80.0-94.0); PLATELET 63 x1000/uL (130-400); RED BLOOD CELL COUNT 2.06 mill/uL (4.7-6.1); RED CELL DISTRIBUTION WIDTH 17.7 % (11.6-14.6); WHITE BLOOD COUNT 7.1 x1000/uL (4.5-11.0)
[2024-09-19 08:41] LABS: IRON 31 ug/dL (65-175)
[2024-09-19] MEDS: PANTOPRAZOLE SODIUM 40 MG/VIAL IV SCH (08:43)
[2024-09-19] MEDS: SEVELAMER CARBONATE 800 MG TABLET PO SCH (08:43)
[2024-09-19 08:44] LABS: TOTAL IRON BINDING CAPACITY 208 ug/dl (250-425)
[2024-09-19] MEDS: ATORVASTATIN CALCIUM 20MG TABLET PO SCH (08:44)
[2024-09-19 08:47] LABS: FOLIC ACID (FOLATE) SERUM > 20.00 ng/mL (>5.38)
[2024-09-19 08:48] LABS: FERRITIN 1616 ng/mL (22-322)
[2024-09-19 08:50] LABS: HEMATOCRIT 20.7 % (42.0-52.0); HEMOGLOBIN 6.9 g/dL (14.0-18.0)
[2024-09-19] MEDS ORDERED: MEDICATION NOT ON FORMULARY EA (Midodrine Hcl 1 TAB) PO SCH (09:00)
[2024-09-19] MEDS ORDERED: APIXABAN 2.5 MG TABLET PO SCH (09:00)
[2024-09-19 17:50] LABS: HEMOGLOBIN 7.6 g/dL (14.0-18.0)
[2024-09-19 18:06] LABS: CREATINE KINASE MB FRACTION 1.6 ng/mL (0.5-3.6)
[2024-09-19 18:22] LABS: HEPATITIS B SURFACE ANTIGEN NEGATIVE (Negative)
[2024-09-19 18:43] LABS: HEPATITIS A AB IGM NEGATIVE (Negative)
[2024-09-19 18:44] LABS: HEPATITIS B CORE AB IGM NEGATIVE (Negative); HEPATITIS C AB NON REACTIVE (Neg) (Negative)
[2024-09-20] VITALS (10 sets, daily range): BP systolic 106–139; BP diastolic 49–77; PULSE 18–79; RESP 18–21; TEMP 35.9–37; O2SAT 96–97
[2024-09-20 07:41] LABS: BASOPHILS % 1.1 % (0.0-2.0); EOSINOPHILS % 6.1 % (0.0-5.0); HEMATOCRIT. 23.3 % (42.0-52.0); HEMOGLOBIN. 7.7 g/dL (14.0-18.0); LYMPHOCYTES % 12.2 % (20.0-50.0); MEAN CORPUSCULAR HEMOGLOBIN 32.3 pg (28.0-32.0); MEAN CORPUSCULAR HGB CONC 33.1 g/dL (31.0-37.0); MEAN CORPUSCULAR VOLUME 97.5 fL (80.0-94.0); MEAN PLATELET VOLUME 10.2 fl (7.4-10.4); MONOCYTES % 7.5 % (2.0-8.0); NEUTROPHILS % 73.1 % (40.0-76.0); PLATELET 73 x1000/uL (130-400); RED BLOOD CELL COUNT 2.39 mill/uL (4.7-6.1); RED CELL DISTRIBUTION WIDTH 19.2 % (11.6-14.6); WHITE BLOOD COUNT 6.5 x1000/uL (4.5-11.0)
[2024-09-20 07:47] LABS: CHLORIDE 100 mEq/L (98-107); POTASSIUM 4.3 mEq/L (3.5-5.1); SODIUM 138 mEq/L (136-145)
[2024-09-20 07:48] LABS: CARBON DIOXIDE 29 mEq/L (21-32)
[2024-09-20 07:53] LABS: GLUCOSE 92 mg/dL (70-105); TRIGLYCERIDE 68 mg/dL (0-150)
[2024-09-20 07:54] LABS: LDL CHOLESTEROL 27 mg/dL (5-100); UREA NITROGEN BLOOD 46 mg/dL (9-23)
[2024-09-20 07:55] LABS: ALBUMIN 3.5 g/dL (3.2-4.8); CHOLESTEROL 90 mg/dL (<200); HDL CHOLESTEROL 46 mg/dL (>55)
[2024-09-20 07:56] LABS: PHOSPHORUS 5.2 mg/dL (2.5-4.9); PREALBUMIN 18.8 mg/dl (10.0-40.0); THYROID STIMULATING HORMONE 7.69 uIU/mL (0.55-4.78)
[2024-09-20 08:17] LABS: CREATININE 6.5 mg/dL (0.6-1.3)
[2024-09-20] MEDS ORDERED: ACET-2708 MT (09:36)
[2024-09-20] MEDS: VANCOMYCIN 750MG PREMIX 150 ML IV ONE (12:42)
== END 2024-09-20 16:33 | disposition home health service (06) | DRG 280 ==
LOC: ER 18:14 → 8WST 23:24
PROVIDERS: ADMIT Hospitalist; ATTEND Hospitalist
PROC: 30233N1 Transfusion of Nonautologous Red Blood Cells into Peripheral Vein, Percutaneous Approach (ICD-10-PCS; 2024-09-19)
PROC: 5A1D70Z Performance of Urinary Filtration, Intermittent, Less than 6 Hours Per Day (ICD-10-PCS; principal; 2024-09-20)
DX: I13.2 Hypertensive heart and chronic kidney disease with heart failure and with stage 5 chronic kidney disease, or end stage renal disease (principal); L89.153 Pressure ulcer of sacral region, stage 3; I21.A1 Myocardial infarction type 2; N18.6 End stage renal disease; E87.20 Acidosis, unspecified; M25.532 Pain in left wrist; I50.32 Chronic diastolic (congestive) heart failure; M54.9 Dorsalgia, unspecified; I95.9 Hypotension, unspecified; D53.9 Nutritional anemia, unspecified; D63.1 Anemia in chronic kidney disease; Z79.01 Long term (current) use of anticoagulants; Z87.891 Personal history of nicotine dependence; Z85.528 Personal history of other malignant neoplasm of kidney; Z86.16 Personal history of COVID-19; Z87.01 Personal history of pneumonia (recurrent); Z90.5 Acquired absence of kidney; Z99.2 Dependence on renal dialysis; Z79.899 Other long term (current) drug therapy
CPT/HCPCS: 36415; 71045; 73110; 74176; 80048; 80061; 82040; 82550; 82553; 82607; 82728; 82746; 82962; 83036; 83540; 83550; 83605; 83735; 83880; 84100; 84134; 84443; 84484; 85014; 85018; 85025; 85027; 86705; 86709; 86850; 86900; 86920; 87340; 90935; 93005; 93970; 94070; 94760; 97165; 99291; A4606; A6449; J0696; J2270; J2470; J3370; J7040; P9016